=== PATIENT | male | born 1940 | race Caucasian/White ===

== ENCOUNTER 2017-02-05 08:06 | Day surgery (SDC) | payer MEDICARE, BC ==
[2017-02-05] MEDS ORDERED: PROPOFOL 10 MG/ML VIAL IV ONE (14:00)
[2017-02-05] MEDS ORDERED: MIDAZOLAM HCL 2MG/2ML VIAL IV ONE (14:00)
[2017-02-05] MEDS ORDERED: LIDOCAINE 2% MDV (20MG/ML) 20ML VIAL IV ONE (14:00)
--- NOTE | 2017-02-05 17:20 | Operative Note ---
DATE OF SURGERY: 02/05/2017 OPERATION: COLONOSCOPY to the cecum with cold biopsy forceps polypectomy x3, cold snare polypectomy x3, electrocautery snare polypectomy x1, and Endoclip placement x1. INDICATION: History of adenomatous polyps. The patient returns at this time for surveillance. ANESTHESIA: Intravenous sedation was administered by the department of anesthesiology and included Diprivan titrated to effect. PROCEDURE: Following informed consent from this alert individual including a discussion of the risks and benefits of the procedure and an opportunity for the patient to ask questions, the patient was in the left lateral decubitus position. A digital rectal examination was performed. No abnormalities were detected. Following this, the Olympus [id number] video colonoscope was inserted into the rectum without resistance. The rectal mucosa had a normal appearance with normal folds and distensibility. The sigmoid colon had extensive diverticulosis noted. The colonoscope was advanced up through the bowel to the level of the cecum without much difficulty. Throughout the bowel the mucosa appeared normal, the folds were normal, and the bowel was fairly well distensible. Again diverticulosis was noted in the left colon. The cecum was defined by noting the appendiceal orifice and ileocecal valve. The colon preparation was good. Retroflexion in the cecum was endoscopically unremarkable. From this point, the colonoscope was then slowly withdrawn after close inspection of the cecum. There were 3 diminutive 3 mm polyps noted on the cecal base which were removed with cold biopsy forceps. There were 3 polyps noted in the ascending colon measuring between 4-5 mm in size, which were removed with cold snare polypectomy. One site bled initially and was treated with an Endoclip, which resulted in hemostasis at the site. There was a larger 8 mm polyp also noted in the more distal ascending colon removed with electrocautery snare polypectomy. The colonoscope was then further withdrawn. No additional changes were noted except for the diverticulosis in the left colon which was rather extensive and retroflexion in the rectum demonstrating moderate-sized internal hemorrhoids. The endoscope was straightened and removed. The patient tolerated the procedure well and was returned to the recovery area in stable condition. IMPRESSION: 1. Three cecal polyps removed with biopsy forceps. 2. Four ascending colon polyps as described above, 3 removed with cold snare polypectomy and 1 with electrocautery snare polypectomy. One Endoclip was placed at a cold snare bleeding site, which resulted in hemostasis. 3. Extensive left colonic diverticulosis. 4. Moderate-sized internal hemorrhoids. RECOMMENDATIONS: Further recommendations will be forthcoming pending results of pathology obtained today. Followup will also be with Dr. Daniel Anderson. Note: During the examination, it was thought that perhaps the patient was having episodes of paroxysmal atrial fibrillation. For this reason, a 12-lead EKG will be obtained in recovery. As always, thank you for allowing me to participate in the care of your patient. Frank Tinajero, CC: MARTHA RAMOS MD, FACP Dr. Daniel Anderson [facility]
== END 2017-02-05 10:20 | disposition home or self-care (01) ==
LOC: HOP 08:06
PROVIDERS: ATTEND Internal Medicine Gastroenterology
DX: Z09 Encounter for follow-up examination after completed treatment for conditions other than malignant neoplasm (principal); D12.0 Benign neoplasm of cecum; D12.2 Benign neoplasm of ascending colon; E11.9 Type 2 diabetes mellitus without complications; Z79.84 Long term (current) use of oral hypoglycemic drugs; E78.00 Pure hypercholesterolemia, unspecified; I10 Essential (primary) hypertension
CPT/HCPCS: 93005; 93010

== ENCOUNTER 2018-11-07 09:28 | Day surgery (SDC) | payer MEDICARE, BC ==
[2018-11-07] MEDS ORDERED: EPINEPHRINE 1 MG/ML AMPUL SQ ONE (09:29)
[2018-11-07] MEDS ORDERED: NEOMYCIN/POLY./DEXAM OPTH OINT OPTH ONE (09:29)
[2018-11-07] MEDS ORDERED: TETRACAINE HCL 0.5% 15 ML OPTH BTL OPTH ONE (09:29)
[2018-11-07] MEDS ORDERED: PROPOFOL 10 MG/ML VIAL IV ONE (09:29)
[2018-11-07] MEDS ORDERED: LIDOCAINE 2% MDV (20MG/ML) 20ML VIAL IV ONE ×2 (09:29)
[2018-11-07] MEDS ORDERED: CIPROFLOXACIN HCL 0.0015 GM, PHENYLEPHRINE HCL 0.05 GM, KETOROLAC TROMETHAMINE 0.000625 GM MC ONE ×5 (14:45)
--- NOTE | 2018-11-08 17:50 | Operative Note ---
DATE OF PROCEDURE: 11/08/18 PREOPERATIVE DIAGNOSIS: NUCLEAR SCLEROTIC CATARACT, RIGHT EYE. POSTOPERATIVE DIAGNOSIS: NUCLEAR SCLEROTIC CATARACT, RIGHT EYE. PROCEDURE: PHACOEMULSIFICATION OF CATARACTOUS LENS WITH IMPLANTATION OF INTRA- OCULAR LENS. SURGEON: CÉSAR GO M.D. LENS IMPLANT USED: YUAN MODEL PCB00 +17.5 DIOPTERS. COMPLICATIONS: NONE. PROCEDURE: The patient was given reference gabriela at the 0 and 180-degree position prior to being blocked in the usual fashion with the retrobulbar block in the right eye. The patient was then prepped and draped in the usual fashion and a lid speculum placed in the right eye. At this point, the corneal marker was used to create markings on the cornea at 168 degrees after which, a scleral tunnel wound was placed at the temporal limbus of 2.4 mm cord length. A paracentesis was placed 2 hours to the left and right of this and the chamber deepened with Viscoelastic. The keratome was used to enter through the scleral tunnel wound after which the continuous circular capsulorrhexis was accomplished without difficulty. Hydrodissection of the lens was performed and the nucleus of the lens was removed in a divide and conquer fashion. The residual cortical material was irrigated and aspirated from the eye and the bag and chamber were then reinflated with Viscoelastic. The intraocular lens was placed into the capsular bag and oriented to a position 10 degrees shorter the intended final access. The residual Viscoelastic was removed from the eye and the eye was then reinflated and the intraocular lens dialed into position at 168 degrees. The wound was noted to be water-tight to direct encounter pressure. The lid speculum was removed and the eye was patched and shielded to be re-examined later in the afternoon. JOB NUMBER: [id number] [facility]
== END 2018-11-07 12:20 | disposition home or self-care (01) ==
LOC: SUR 09:28
PROVIDERS: ATTEND Ophthalmology
DX: H25.11 Age-related nuclear cataract, right eye (principal); I10 Essential (primary) hypertension; E11.9 Type 2 diabetes mellitus without complications; E78.00 Pure hypercholesterolemia, unspecified
CPT/HCPCS: J0171

== ENCOUNTER 2018-11-21 08:16 | Day surgery (SDC) | payer MEDICARE, BC ==
[2018-11-21] MEDS ORDERED: NEOMYCIN/POLY./DEXAM OPTH OINT OPTH ONE (08:17)
[2018-11-21] MEDS ORDERED: LIDOCAINE 2% MDV (20MG/ML) 20ML VIAL IV ONE ×2 (08:17)
[2018-11-21] MEDS ORDERED: EPINEPHRINE 1 MG/ML AMPUL SQ ONE (08:17)
[2018-11-21] MEDS ORDERED: TETRACAINE HCL 0.5% 15 ML OPTH BTL OPTH ONE (08:17)
[2018-11-21] MEDS ORDERED: PROPOFOL 10 MG/ML VIAL IV ONE (08:17)
[2018-11-21] MEDS ORDERED: CIPROFLOXACIN HCL 0.0015 GM, PHENYLEPHRINE HCL 0.05 GM, KETOROLAC TROMETHAMINE 0.000625 GM MC ONE ×5 (13:15)
--- NOTE | 2018-11-23 06:47 | Operative Note ---
DATE OF PROCEDURE: 11/21/18 PREOPERATIVE DIAGNOSIS: NUCLEAR SCLEROTIC CATARACT, LEFT EYE. POSTOPERATIVE DIAGNOSIS: NUCLEAR SCLEROTIC CATARACT, LEFT EYE. PROCEDURE: PHACOEMULSIFICATION OF CATARACTOUS LENS WITH IMPLANTATION OF INTRA- OCULAR LENS. SURGEON: CÉSAR GO M.D. LENS IMPLANT USED: HUE AND HUE MODEL PCB00 +17.5 DIOPTERS. COMPLICATIONS: NONE. PROCEDURE: The patient was given reference gabriela at the 0 and 180-degree position prior to being blocked in the usual fashion with the retrobulbar block in the left eye. The patient was then prepped and draped in the usual fashion and a lid speculum placed in the left eye. At this point, the corneal marker was used to create markings on the cornea at 168 degrees after which, a scleral tunnel wound was placed at the temporal limbus of 2.4 mm cord length. A paracentesis was placed 2 hours to the left and right of this and the chamber deepened with Viscoelastic. The keratome was used to enter through the scleral tunnel wound after which the continuous circular capsulorrhexis was accomplished without difficulty. Hydrodissection of the lens was performed and the nucleus of the lens was removed in a divide and conquer fashion. The residual cortical material was irrigated and aspirated from the eye and the bag and chamber were then reinflated with Viscoelastic. The intraocular lens was placed into the capsular bag and oriented to a position 10 degrees shorter the intended final access. The residual Viscoelastic was removed from the eye and the eye was then reinflated and the intraocular lens dialed into position at 168 degrees. The wound was noted to be water-tight to direct encounter pressure. The lid speculum was removed and the eye was patched and shielded to be re-examined later in the afternoon. JOB NUMBER: [id number] [facility]
== END 2018-11-21 10:45 | disposition home or self-care (01) ==
LOC: SUR 08:16
PROVIDERS: ATTEND Ophthalmology
DX: H25.12 Age-related nuclear cataract, left eye (principal); I10 Essential (primary) hypertension; E11.9 Type 2 diabetes mellitus without complications; E78.00 Pure hypercholesterolemia, unspecified
CPT/HCPCS: J0171